=== PATIENT | female | born 1955 | race Caucasian/White ===

== ENCOUNTER 2016-10-21 12:45 | Emergency (ER) | payer SELFPAY ==
[2016-10-21 12:59] VITALS: BP 128/64; PULSE 72; TEMP 98.4; BMI 27.0
--- NOTE | 2016-10-21 14:31 | PDOC ---
History of Present Illness - History of Present Illness Initial Comments: 10/21/16 14:33 Patient is a 61 year old female with significant medical hx of who is presenting to the ED with sore throat for two months. The patient does not endorse any rhinorrhea, cough, nasal congestion, chest pain, fever, or chills. <Hilda Watkins - Last Filed: 10/21/16 14:32> <David Becerril - Last Filed: 10/21/16 16:21> - General Chief Complaint: Respiratory Stated Complaint: COUGH FOR 2 MONTHS Time Seen by Provider: 10/21/16 14:21 Past History <Hilda Watkins Last Filed: 10/21/16 14:32> - Past Medical History Anemia: No Asthma: No Cancer: No Cardiac Disorders: No CVA: No COPD: No DVT: No Dementia: No Diabetes: No Dialysis: No GI Disorders: No Disorders: No HTN: No Hypercholesterolemia: No HIV: No Kidney Stones: No Liver Disease: No Psychiatric Problems: No Seizures: No Thyroid Disease: No Lung CA: No Other medical history: DENIES - Psycho/Social/Smoking Cessation Hx Anxiety: No Suicidal Ideation: No Smoking History: Never smoked Information on smoking cessation initiated: No Hx Alcohol Use: No Drug/Substance Use Hx: No Substance Use Type: None <David Becerril - Last Filed: 10/21/16 16:21> - Past Medical History Home Medications: Ambulatory Orders Fexofenadine HCl [Janeth Allergy] 60 mg PO BID #15 tablet 10/21/16 Ibuprofen 400 mg PO QID #20 tablet 10/21/16 Review of Systems - Review of Systems Comments:: 10/21/16 14:33 CONSTITUTIONAL: Absent: fever, no chills, no fatigue EYES: Absent: visual changes ENT: Present: sore throat Absent: ear pain CARDIOVASCULAR: Absent: chest pain, no palpitations RESPIRATORY: Absent: cough, no SOB GI: Absent: abdominal pain, no nausea, no vomiting, no constipation, no diarrhea GENITOURINARY: Absent: dysuria, no frequency, no hematuria MUSKULOSKELETAL: Absent: back pain, no arthralgia, no myalgia SKIN: Absent: rash NEURO: Absent: headache <Hilda Watkins Last Filed: 10/21/16 14:32> *Physical Exam - Vital Signs Last Vital Signs Temp Pulse Resp BP Pulse Ox 98.4 F 72 16 128/64 99 10/21/16 12:50 10/21/16 12:50 10/21/16 12:50 10/21/16 12:50 10/21/16 12:50 - Physical Exam Comments: 10/21/16 14:42 GENERAL: Well-appearing, well-nourished. No apparent distress. HEENT: Normocephalic, atraumatic. No sign of inflammation or swelling in the throat. PERRL, EOM intact. No TM bulging or erythema. CARDIOVASCULAR: Normal S1, S2. Regular rate and rhythm. PULMONARY: Clear to auscultation bilaterally. ABDOMEN: Soft, non-distended, non-tender. EXTREMITIES: Normal ROM in all four extremities. No gross deformities. SKIN: Warm, dry. No rash NEUROLOGICAL: No focal neurological deficits. <Hilda Watkins - Last Filed: 10/21/16 14:32> - Vital Signs Last Vital Signs Temp Pulse Resp BP Pulse Ox 98.4 F 72 16 128/64 99 10/21/16 12:50 10/21/16 12:50 10/21/16 12:50 10/21/16 12:50 10/21/16 12:50 <David Becerril - Last Filed: 10/21/16 16:21> Medical Decision Making - Medical Decision Making 10/21/16 16:21 Throat intermittent for several weeks, associated URI symptoms seem to be ALLERGIC in nature. Examination of the throat shows no sign of acute inflammation <David Becerril - Last Filed: 10/21/16 16:21> *DC/Admit/Observation/Transfer - Attestations Scribe Attestion: 10/21/16 14:43 Documentation prepared by Hilda Watkins, acting as medical insurance coder for David Jacobo MD. <Hilda Watkins - Last Filed: 10/21/16 14:32> - Discharge Dispostion Admit: No <David Becerril - Last Filed: 10/21/16 16:21> Diagnosis at time of Disposition: Allergic pharyngitis - Discharge Dispostion Disposition: HOME Condition at time of disposition: Stable - Prescriptions Prescriptions: Fexofenadine HCl [Janeth Allergy] 60 mg PO BID #15 tablet Ibuprofen 400 mg PO QID #20 tablet - Patient Instructions Printed Discharge Instructions: DI for Pharyngitis/Tonsillopharyngitis -- Adult
== END 2016-10-21 14:49 | disposition home or self-care (01) ==
LOC: FER 12:45
DX: J02.9 Acute pharyngitis, unspecified (principal)
CPT/HCPCS: 99281-25

== ENCOUNTER 2017-09-20 09:10 | Emergency (ER) | payer OTHER ==
[2017-09-20 09:19] VITALS: BP 155/81; PULSE 85; TEMP 98.5; BMI 24.7
--- NOTE | 2017-09-20 10:30 | PDOC ---
History of Present Illness - General Chief Complaint: Back Pain Stated Complaint: INJURY Time Seen by Provider: 09/20/17 09:22 History Source: Patient Exam Limitations: Language Barrier (StyleSe[employer] #[id number]) - History of Present Illness Initial Comments: 09/20/17 10:33 This 61-year-old woman without significant past medical history who presents emergency Department with continued back pain status post slip and fall approximately 3 weeks ago. Patient was seen as an outpatient and had x-rays done at that time which were negative for fracture. Patient now reports the pain shoots down the back of her right leg into her knee. Pain worsens with extension of the right knee and flexion of the right hip. Patient states she was unable to secure an appointment with her primary doctor and is requesting a new physician at this time. She denies any saddle anesthesia, incontinence, loss of feeling to bilateral lower extremities. Past History - Past Medical History Allergies/Adverse Reactions: Allergies Allergy/AdvReac Type Severity Reaction Status Date / Time No Known Allergies Allergy Verified 09/20/17 09:15 Home Medications: Ambulatory Orders Fexofenadine HCl [Janeth Allergy] 60 mg PO BID #15 tablet 10/21/16 Ibuprofen 400 mg PO QID #20 tablet 10/21/16 Naproxen 500 mg PO BID #30 tablet. 09/20/17 Anemia: No Asthma: No Cancer: No Cardiac Disorders: No CVA: No COPD: No DVT: No Dementia: No Diabetes: No Dialysis: No GI Disorders: No Disorders: No HTN: No Hypercholesterolemia: No Kidney Stones: No Liver Disease: No Psychiatric Problems: No Seizures: No Thyroid Disease: No Lung CA: No Other medical history: DENIES. - Suicide/Smoking/Psychosocial Hx Smoking History: Never smoked Hx Alcohol Use: No Drug/Substance Use Hx: No Substance Use Type: None Review of Systems - Review of Systems Able to Perform ROS?: Yes Is the patient limited Amharic proficient: Yes Constitutional: No: Symptoms Reported HEENTM: No: Symptoms Reported Respiratory: No: Symptoms reported Cardiac (ROS): No: Symptoms Reported ABD/GI: No: Symptoms Reported : No: Symptoms Reported Musculoskeletal: Yes: See HPI Integumentary: No: Symptoms Reported Neurological: No: Symptoms reported Endocrine: No: Symptoms Reported Hematologic/Lymphatic: No: Symptoms Reported *Physical Exam - Vital Signs Last Vital Signs Temp Pulse Resp BP Pulse Ox 98.5 F 85 19 155/81 98 09/20/17 09:15 09/20/17 09:15 09/20/17 09:15 09/20/17 09:15 09/20/17 09:15 - Physical Exam General Appearance: Yes: Appropriately Dressed. No: Apparent Distress HEENT: positive: Normal ENT Inspection Neck: positive: Trachea midline, Supple Respiratory/Chest: positive: Lungs Clear, Normal Breath Sounds. negative: Respiratory Distress, Accessory Muscle Use Cardiovascular: positive: Regular Rhythm, Regular Rate. negative: Murmur Gastrointestinal/Abdominal: positive: Normal Bowel Sounds, Soft. negative: Tender Musculoskeletal: positive: Normal Inspection. negative: CVA Tenderness Extremity: positive: Normal Inspection, Normal Range of Motion Integumentary: positive: Normal Color, Dry, Warm Neurologic: positive: telephone maintenance mechanic II-XII NML intact, Fully Oriented, Alert, Normal Mood/ Affect, Normal Response, Motor Strength 5/5 Medical Decision Making - Medical Decision Making 09/20/17 10:24 A/P: 61-year-old woman without significant past medical history with continued lower back pain status post slip and fall on stairs approximately 3 weeks ago. No bony tenderness deformity noted. Able to perform straight leg raises without difficulty. 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 No foot drop noted X-ray of the lumbar spine on 09/06/[address] Baum: Moderate degenerative arthritis at L5-S1, no fracture or acute bony abnormalities. Explained to the patient that she needs to continue to take NSAID medication and the pain should resolve within 6-8 weeks from initial injury. I will provide number for follow-up with doctor Land per patient request. Was explained to the patient why MRI testing is not indicated at this time. I discussed the physical exam findings, ancillary test results and final diagnoses with the patient. I answered all of the patient's questions. The patient was satisfied with the care received and felt comfortable with the discharge plan and treatment plan. The patient will call Dr. Thrasher within 96 hours to arrange follow-up and will return to the Emergency Department with any new, persistent or worsening symptoms. *DC/Admit/Observation/Transfer Diagnosis at time of Disposition: Back pain due to injury - Discharge Dispostion Disposition: HOME Condition at time of disposition: Stable Admit: No - Prescriptions Prescriptions: Naproxen 500 mg PO BID #30 tablet.dr - Referrals Referrals: Price Land MD [Staff Physician] - - Patient Instructions Printed Discharge Instructions: DI for Back Pain With Sciatica Print Language: BULGARIAN - Post Discharge Activity
== END 2017-09-20 10:41 | disposition home or self-care (01) ==
LOC: JERFT 09:10
DX: S39.82XA Other specified injuries of lower back, initial encounter (principal); W10.8XXA Fall (on) (from) other stairs and steps, initial encounter; Y93.89 Activity, other specified; Y92.89 Other specified places as the place of occurrence of the external cause; Y99.8 Other external cause status
CPT/HCPCS: 99281-25

== ENCOUNTER 2024-02-10 05:48 | Emergency (ER) | payer OTHER ==
[2024-02-10 05:56] VITALS: BMI 24.6
[2024-02-10 06:50] LABS: EPI CELLS 15 /uL (0-25.1); HYALINE CASTS 1 /uL (0-3.1); URINE APPEARANCE TURBID; URINE BACTERIA 5901 /uL (0-1359); URINE BILIRUBIN NEGATIVE (NEGATIVE); URINE COLOR YELLOW; URINE GLUCOSE (UA) NEGATIVE (NEGATIVE); URINE KETONE TRACE (NEGATIVE); URINE LEUK ESTERASE 3+ (NEGATIVE); URINE NITRITE POSITIVE (NEGATIVE); URINE PROTEIN 2+ (NEGATIVE); URINE UROBILINOGEN 0.2 mg/dL (0.2-1.0); URINE WBC 20054 /uL (0-25.8)
[2024-02-10] MEDS ORDERED: ACETAMINOPHEN INJECTION 100 ML ONE (08:08)
[2024-02-10] MEDS ORDERED: CEFTRIAXONE 1 GM/50 ML BAG ONE (08:10)
[2024-02-10] MEDS: ACETAMINOPHEN 1000 MG/100 ML BAG IVPB ONE (08:30)
[2024-02-10 08:41] LABS: URINE RBC 407.1 /uL (0-23.9)
[2024-02-10 08:42] LABS: YEAST NEGATIVE (NEGATIVE)
[2024-02-10 08:46] LABS: BASO % 0.4 % (0-2.0); HEMATOCRIT 43.5 % (32.4-45.2); HEMOGLOBIN 14.6 GM/dL (10.7-15.3); LYMPH % 14.2 % (8-40); MCHC 33.6 g/dl (32.0-36.0); MEAN CELL VOLUME 92.2 fl (80-96); MEAN PLT VOLUME 8.1 fl (7.5-11.1); NEUT % 75.4 % (42.8-82.8); PLATELET COUNT 230 10^3/uL (134-434); RBC 4.72 M/mm3 (3.60-5.2); RDW 14.5 % (11.6-15.6)
[2024-02-10 08:58] LABS: POTASSIUM 4.2 mmol/L (3.5-5.1)
[2024-02-10 08:59] LABS: CALCIUM 9.5 mg/dL (8.5-10.1)
[2024-02-10 09:00] LABS: ALBUMIN 3.8 g/dl (3.4-5.0); BLOOD UREA NITROGEN 12.5 mg/dL (7-18)
[2024-02-10 09:03] LABS: CREATININE 0.9 mg/dL (0.55-1.3)
[2024-02-10 09:05] LABS: BILIRUBIN,TOTAL 2.9 mg/dL (0.2-1); TOT PROT 7.8 g/dl (6.4-8.2)
[2024-02-10 10:48] VITALS: BP 111/57; PULSE 78; RESP 16; TEMP 98.5
== END 2024-02-10 11:05 | disposition home or self-care (01) ==
LOC: JER 05:48
PROC: 3E033NZ Introduction of Analgesics, Hypnotics, Sedatives into Peripheral Vein, Percutaneous Approach (ICD-10-PCS; principal; 2024-02-10)
PROC: 3E03329 Introduction of Other Anti-infective into Peripheral Vein, Percutaneous Approach (ICD-10-PCS; 2024-02-10)
DX: N12 Tubulo-interstitial nephritis, not specified as acute or chronic (principal); R10.9 Unspecified abdominal pain; R30.0 Dysuria; M54.9 Dorsalgia, unspecified; G89.29 Other chronic pain; R68.83 Chills (without fever)
CPT/HCPCS: 36415; 74177-TC; 80053; 81003; 85025; 87086; 87186; 99285-25; J0131; Q9967